=== PATIENT | male | born 1940 | race Caucasian/White ===

== ENCOUNTER → 2016-09-28 | Outpatient (CLI) | payer MEDICARE, OTHER ==
[~2016-09-28] VITALS: Ht 182.9 cm; Wt 85.0 kg
[~2016-09-28] MED LIST: ADV250 IH; ALBU8.5H IH; ASPI81 PO; CARB1TAB14 PO; DUTA.5 PO; ESCI10TA PO; FLUD.1 PO; LAXATIVE PO; SODIUM CHLORIDE PO
[2016-09-28 13:25] VITALS: BP 137/90
== END | disposition home or self-care (01) ==
LOC: SRCNTR 12:53
PROVIDERS: ATTEND Internal Medicine Critical Care Medicine
DX: J44.9 Chronic obstructive pulmonary disease, unspecified (principal); N40.0 Benign prostatic hyperplasia without lower urinary tract symptoms; C34.92 Malignant neoplasm of unspecified part of left bronchus or lung; R27.9 Unspecified lack of coordination; F17.210 Nicotine dependence, cigarettes, uncomplicated
CPT/HCPCS: G0463

== ENCOUNTER → 2016-11-29 | Outpatient (CLI) | payer MEDICARE, OTHER ==
[~2016-11-29] VITALS: Ht 182.9 cm; Wt 79.0 kg
[2016-11-29 14:50] VITALS: BP 110/73
== END | disposition home or self-care (01) ==
LOC: SRCNTR 13:53
PROVIDERS: ATTEND Internal Medicine Critical Care Medicine
DX: C34.90 Malignant neoplasm of unspecified part of unspecified bronchus or lung (principal); J44.1 Chronic obstructive pulmonary disease with (acute) exacerbation; N40.0 Benign prostatic hyperplasia without lower urinary tract symptoms; F17.210 Nicotine dependence, cigarettes, uncomplicated; R27.9 Unspecified lack of coordination
CPT/HCPCS: G0463